=== PATIENT | female | born 1965 | race Two or more races ===

== ENCOUNTER 2022-04-30 11:24 | Emergency (ER) | payer BC, OTHER ==
[~2022-04-30] VITALS: Ht 152.4 cm; Wt 65.0 kg
[2022-04-30] MEDS ORDERED: HYDROcodone-ACET 5/325MG TAB PO ONE (15:45)
[2022-04-30 16:00] VITALS: BP 122/79
[2022-04-30] MEDS ORDERED: HYDR1TAB97 PO (16:22)
== END 2022-04-30 17:24 | disposition home or self-care (01) ==
LOC: EDBD 11:24 → ER 11:24
DX: S82.001A Unspecified fracture of right patella, initial encounter for closed fracture (principal); W18.39XA Other fall on same level, initial encounter; Y93.89 Activity, other specified; Y92.89 Other specified places as the place of occurrence of the external cause; Y99.8 Other external cause status
CPT/HCPCS: 73564